=== PATIENT | female | born 1995 | race Caucasian/White ===

== ENCOUNTER → 2018-12-28 03:56 | Observation (INO) ==
[2018-12-28 03:00] LABS: Protein/Creatinine Ratio,Urine 0.27 mg/mg (0.00-0.20)
[2018-12-28 03:01] LABS: Amphetamine Screen,Urine Negative ng/mL (Cutoff=1000); Barbiturate Screen,Urine Negative ng/mL (Cutoff=200); Benzodiazepines Screen,Urine Negative ng/mL (Cutoff=200); Cannabinoid Screen,Urine Negative ng/mL (Cutoff = 50); Cocaine Screen,Urine Negative ng/mL (Cutoff= 300); Opiate Screen,Urine Negative ng/mL (Cutoff=300); Phencyclidine Screen,Urine Negative ng/mL (Cutoff=25)
[2018-12-28 03:02] LABS: Alanine Aminotransferase 7 Units/L (7-52); Aspartate Amino Transferase 9 Units/L (13-39); BUN/Creatinine Ratio 19 (6-26); Blood Urea Nitrogen 7 mg/dL (6-20); Lactate Dehydrogenase 128 Units/L (140-271); Uric Acid 2.6 mg/dL (2.3-7.6); eGFR For Non-African Americans > 60 (> 60)
--- NOTE | 2018-12-28 08:15 | Discharge Summary ---
Date of Encounter: 12/28/18 Time of Encounter: 08:12 - Discharge Diagnosis (1) 30 weeks gestation of Priority: Primary Status: Acute Comments: Patient was sent for PIH workup from [facility]. She states she has a history of preeclampsia with her previous . BP in ER was 160/90, patient asymptomatic. Admitted to observation for NST and BP monitoring. Blood pressures WNL while here on monitor, PC ratio 0.27 with other labs in the normal range. (2) NST (non-stress test) reactive Priority: Secondary Status: Acute Comments: FHR 155 bpm, moderate variability, +15x15 accels, no decels. - Discharge Medications Home Medications: Aspirin [Lo-Dose Aspirin EC] 81 mg PO DAILY 12/28/18 [History] Allergies/Adverse Reactions: Allergy/AdvReac Type Severity Reaction Status Date / Time No Known Allergies Allergy Verified 04/09/17 20:59 Data Procedures and tests throughout hospitalization: Laboratory Tests 12/28/18 12/28/18 12/28/18 02:30 02:30 02:30 BUN 7 Creatinine 0.36 L Est GFR ( Amer) > 60 Est GFR (Non-Af Amer) > 60 BUN/Creatinine Ratio 19 Uric Acid 2.6 AST 9 L ALT 7 Lactate Dehydrogenase 128 L Urine Creatinine 52 Protein/Creatinin Ratio 0.27 H Urine Total Protein 14 Urine Opiates Screen Negative Ur Barbiturates Screen Negative Ur Phencyclidine Scrn Negative Ur Amphetamines Screen Negative U Benzodiazepines Scrn Negative Urine Cocaine Screen Negative U Marijuana (THC) Screen Negative Ur Drug Screen Interp See Below Labs on day of discharge: Labs from last 24 hours 12/28/18 12/28/18 12/28/18 02:30 02:30 02:30 BUN 7 Creatinine 0.36 L Est GFR ( Amer) > 60 Est GFR (Non-Af Amer) > 60 BUN/Creatinine Ratio 19 Uric Acid 2.6 AST 9 L ALT 7 Lactate Dehydrogenase 128 L Urine Creatinine 52 Protein/Creatinin Ratio 0.27 H Urine Total Protein 14 Urine Opiates Screen Negative Ur Barbiturates Screen Negative Ur Phencyclidine Scrn Negative Ur Amphetamines Screen Negative U Benzodiazepines Scrn Negative Urine Cocaine Screen Negative U Marijuana (THC) Screen Negative Ur Drug Screen Interp See Below Date of admission: 12/28/18 02:14 Discharging clinician: Mary Scanlon Anticipated date of discharge: 12/28/18 - Patient Status Disposition: Home, Self-Care Condition: Good Functional capacity at discharge: independent ambulation Overall status at discharge: patient is progressing back to baseline - Discharge Instructions Additional Instructions: LABOR AND DELIVERY DISCHARGE INSTRUCTIONS Signs and Symptoms to be Reported to your Doctor Immediately: * Sudden gush, continuous or intermittent lead of fluid from vagina (note the time of gush and color of fluid) * Onset of bright red vaginal bleeding with or without pain (if you had a vaginal exam during this visit you may notice some dark red spotting. This is normal.) * Lower abdominal cramping or backache that is premenstrual-like feeling. * More than 6 contractions in one hour. * Burning during urination, having to urinate more frequently or pain in your mid-back. * A change in the baby's activity. This could be an increase or decrease in activity. * Severe headache which does not go away with tylenol. * Sudden swelling in the face, hands, arms and/or legs. * Upper abdominal pain - sometimes associated with heartburn or nausea and is not relieved by Maalox, Mylanta or Tums. * Dizziness or blurred vision or visual disturbances (seeing stars/lights). * Kick Counts One hour after a meal, lay down on one side in a quiet place. Count the number of dung the baby moves during an hour. If less than 6 movements, notify your physician. Diet: *Force fluids - 8-10 tall glasses of fluid per day. May include popsicles and jello. 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 She did have an elevated blood pressure of 160/90 while there and reported a history of preeclampsia with a previous . On arrival, her BP's were found to be WNL and lab work was normal as well. She is asymptomatic and has a reactive NST. Patient will be discharged home to follow up as scheduled for routine care. Time Attestation: Total time spent providing and/or coordinating discharge services: Time Spent: Less than 30 minutes - VTE Reasons for not Prescribing Prophylaxis: Treatment not Indicated - Low risk for VTE
== END | disposition home or self-care (01) ==
LOC: 1NENULAB
PROVIDERS: ADMIT Registered Nurse; ATTEND Registered Nurse

== ENCOUNTER 2019-02-17 11:36 | Inpatient (IN) ==
[2019-02-17] MEDS ORDERED: Ondansetron 4 MG/2 ML VIAL IVP PRN ×2 (11:43→19:17)
[2019-02-17] MEDS ORDERED: Famotidine 20 MG/2 ML VIAL IVP PRN (11:43)
[2019-02-17] MEDS ORDERED: Metoclopramide 10 MG/2 ML VIAL IVP PRN (11:43)
[2019-02-17] MEDS ORDERED: Naloxone 0.4 MG/ML INJ IVP PRN (11:43)
[2019-02-17] MEDS ORDERED: *HR* Nalbuphine 10 MG/ML AMPUL IVP PRN (11:43)
[2019-02-17] MEDS ORDERED: miSOPROStol 25 MCG TABLET PO PRN (11:43)
[2019-02-17] MEDS ORDERED: Ringers Solution, Lactated 1,000 ML IVC SCH (11:45)
[2019-02-17] MEDS ORDERED: Oxytocin 20 units/ LR 1000 mL 20 UNIT/1,000 ML BAG IVC SCH ×2 (11:45→18:15)
--- NOTE | 2019-02-17 12:57 | OB/GYN History & Physical ---
Date of Encounter: 02/17/19 Time of Encounter: 12:52 Assessment and Plan (1) 37 weeks gestation of Current visit: Yes Status: Acute Patient admitted for induction of labor at 37 weeks gestation for preeclampsia per Dr. Barnhart and Dr. Horowitz. (2) Pre-eclampsia affecting childbirth Current visit: Yes Status: Acute Patient is admitted for induction of labor at 37 weeks 0 days gestation. Decision made by Dr. Barnhart and Dr. Horowitz according to guidelines patient should be delivered at this time. She has had mild range blood pressures for multiple days, last 24 hour urine returned with 464 mg per day total protein PIH labs drawn upon admission as well as random protein/creatinine ratio and results pending (3) NST (non-stress test) reactive Current visit: No Status: Acute FHR 140 bpm, moderate variability, +15x15 accels, no decels. History of Present Illness Chief complaint: IOL for preeclampsia at 37w0d HPI: Ms. Forrester is a 23 year old female at 37w0d who is admitted today for induction of labor due to preeclampsia. Patient has had multiple days of mild range pressures and last 24 hr urine resulted total protein of 464 mg/day. Patient follows with Dr. Barnhart and he discussed case with Dr. Horowitz who both agree according to guidelines, patient needs to be induced at this time. Patient reports positive movement, denies bleeding and vaginal leakage. She denies headache, epigastric pain and visual disturbance today. Blood type O+ GBS negative HbSAG negative Rubella Immune Varicella Immune T. Pall negative Past Med Surg Social Fam HX - Past Medical History Source: patient Medical history: migraine Additional medical history: pt is currently Psychiatric history: anxiety - Past Surgical History Surgical History: no surgical history - Social History Smoking Status: Former smoker Smokeless Tobacco Status: No Alcohol use: none Drug use: none Current living situation: Home - Independent Activity Level: Independent ambulation Recent Out of Country Travel Within the Last 8 Weeks: No Exposure or Possible Exposure to Illness During Travel: No - Family History Mother Living Status: Still Living Hx Family Cardiac Disorders: No Hx Family Respiratory Disorders: No Hx Family Cancer: No Hx Family GI Disorders: No Hx Family Endocrine Disorder: No Hx Family Neuromuscular Disorders: No Hx Family Neurologic Disorders: No Hx Family HEENT Disorders: No Hx Family Autoimmune Disorders: Yes (MS) Obstetrical History - Pregnancies : 4 Para: 3 Term: 3 : 0 Ab's: 0 Livin Medications and Allergies Aspirin [Lo-Dose Aspirin EC] 81 mg PO DAILY 12/28/18 [History] Allergy/AdvReac Type Severity Reaction Status Date / Time No Known Allergies Allergy Verified 04/09/17 20:59 Review of System OB All systems PM: reviewed and no additional remarkable complaints except as stated Exam - Constitutional Constitutional: well developed, well nourished, no acute distress, average body habitus - HEENT HEENT: Normocephaly - Neck Neck exam: full ROM - Lungs Respiratory exam: CTAB - Cardiovascular Cardiovascular exam: RRR, +S1, +S2 - Breasts Breast: bilateral: normal - Abdomen Abdomen: Present: bowel sounds normal, gravid, non tender - Extremities Extremities exam: full ROM, normal capillary refill, normal inspection Deep Tendon Reflex Grade: 2+ Normal - Vulva Vulva: bilateral: normal - Vagina Vagina: Present: normal moisture - Cervix Dilation: 1 Effacement: 70 Station: -3 - Uterus Uterus exam: Present: normal size - Anus/Rectum Anus/Rectum: Present: normal perianal skin Results All other labs normal. - VTE Reasons for not Prescribing Prophylaxis: Treatment not Indicated - Low risk for VTE
--- NOTE | 2019-02-17 13:06 | OB Labor Progress Note ---
Date of Encounter: 02/17/19 Time of Encounter: 13:04 Labor Progress Note - Subjective Subjective: Patient resting without complaint at this time. - Vital Signs Vital Signs: WNL - Cervix Cervix: 1/70/-3 - Heart Tones Heart Tones: Category I, reactive tracing. - [place]: Irregular - Interventions Interventions: Procedure explained and patient agrees to proceed with cervical costello insertion SVE, Cervical costello placed without difficulty 80mL instilled into uterine balloon, 60 mL instilled into vaginal balloon. - Plan Physician notified: Yes Physician notified details: Spoke with Dr. Barnhart prior to patient's arrival and plan of care was discussed. According to Dr. Barnhart and Dr. Horowitz, patient should be delivered at this time due to preeclampsia. Will continue care in consultation with Dr. Barnhart. Plan: Recheck cervix in approximately 4 hours after placement of cervical costello. Give po Cytotec at this time. AROM when appropriate after costello is expelled or removed. Anticipate
[2019-02-17 13:18] LABS: Basophils % 0.3 %; Eosinophils # 0.1 K/mcL (0.0-0.6); Eosinophils % 0.4 %; Hemoglobin 10.8 g/dL (11.5-15.4); Immature Granulocytes % 1.7 % (0-4); Lymphocytes # 1.8 K/mcL (0.6-4.6); Lymphocytes % 13.2 %; Mean Corpuscular Hemoglobin 22.4 pg (28.0-33.3); Mean Corpuscular Volume 74.7 fL (83.0-100.0); Monocytes # 0.8 K/mcL (0.0-1.3); Monocytes % 5.8 %; Neutrophils # 10.6 K/mcL (1.6-8.9); Platelet Count 342 K/mcL (140-400); Red Blood Count 4.82 M/mcL (3.82-4.97); Red Cell Distribution Width 15.7 % (11.5-14.5); Segmented Neutrophils % 78.6 %
[2019-02-17 13:38] LABS: Alanine Aminotransferase 6 Units/L (7-52); Amphetamine Screen,Urine Negative ng/mL (Cutoff=1000); Aspartate Amino Transferase 13 Units/L (13-39); BUN/Creatinine Ratio 16 (6-26); Barbiturate Screen,Urine Negative ng/mL (Cutoff=200); Benzodiazepines Screen,Urine Negative ng/mL (Cutoff=200); Blood Urea Nitrogen 7 mg/dL (6-20); Cannabinoid Screen,Urine Negative ng/mL (Cutoff = 50); Cocaine Screen,Urine Negative ng/mL (Cutoff= 300); Lactate Dehydrogenase 163 Units/L (140-271); Opiate Screen,Urine Negative ng/mL (Cutoff=300); Phencyclidine Screen,Urine Negative ng/mL (Cutoff=25); Uric Acid 6.4 mg/dL (2.3-7.6); eGFR For Non-African Americans > 60 (> 60)
[2019-02-17 13:55] LABS: Creatinine,Urine 252 mg/dL; Protein/Creatinine Ratio,Urine 1.57 mg/mg (0.00-0.20)
--- NOTE | 2019-02-17 16:45 | OB Labor Progress Note ---
Date of Encounter: 02/17/19 Time of Encounter: 16:42 Labor Progress Note - Subjective Subjective: Patient coping well with contractions. Does not plan for an epidural - Vital Signs Vital Signs: WNL - Cervix Cervix: 6-7/80/-1 - Heart Tones Heart Tones: FHR 145 bpm, moderate variability, +15x15 accels, no decels. - [place]: 2-3 min - Interventions Interventions: SVE, costello balloon had been expelled spontaneously AROM for small amount of clear fluid - Plan Physician notified: Yes Physician notified details: Dr. Barnhart notified of SVE and AROM Plan: Start Pitocin augmentation when able
--- NOTE | 2019-02-17 17:41 | OB Labor Progress Note ---
Date of Encounter: 02/17/19 Time of Encounter: 17:35 Labor Progress Note - Subjective Subjective: patient feeling more pressure, does not want epidural - Vital Signs Vital Signs: VSS - Cervix Cervix: 7cm/80%/+1 - Heart Tones Heart Tones: 140/mod niko/+accels, no decels - [place]: Q1-2 - Plan Plan: anticipate
--- NOTE | 2019-02-17 17:58 | OB/GYN Procedure Note ---
Delivery - Delivery Date: 02/17/19 Provider: Josefa Barnhart Intrapartum events: none Delivery induction: misoprostol Delivery augmentation: rupture of membranes Delivery monitor: external FHT, external uterine Anesthesia: none Quantitated Blood Loss: 100 - Repair Episiotomy: none Laceration Description: None - Complications Delivery complications: none - Disposition Mom disposition: stable in LDR [place] disposition: stable in LDR - Comments Comments: Mitzy is a 23 y/o s/p @ 37 weeks after IOL for pre-eclampsia w/o severe features who delivered a viable male infant, nuchal x 1 reduced easily, weight 2740g @ 1746hrs. 3 vessel cord clamped and cut after placed on Mom's chest. Placenta delivered 1750hrs. APGARs 7/9, EBL 100ml. No lacerations. Mother and doing well.
[2019-02-17] MEDS ORDERED: Measles/Mumps/Rubella Vacc 0.5 ML VIAL SQ PRN ×2 (18:05→19:17)
[2019-02-17] MEDS ORDERED: Ibuprofen 600 MG TABLET PO PRN ×2 (18:05→19:17)
[2019-02-18 05:49] LABS: Basophils % 0.3 %; Eosinophils % 0.2 %; Hematocrit 32.4 % (35.3-44.9); Immature Granulocytes % 1.2 % (0-4); Lymphocytes % 13.4 %; Mean Corpuscular HGB Conc 30.9 g/dL (31.6-35.5); Mean Corpuscular Volume 74.7 fL (83.0-100.0); Mean Platelet Volume 8.9 fL (9.4-12.4); Monocytes % 6.7 %; Neutrophils # 11.5 K/mcL (1.6-8.9); Platelet Count 284 K/mcL (140-400); Red Blood Count 4.34 M/mcL (3.82-4.97); Red Cell Distribution Width 15.8 % (11.5-14.5); Segmented Neutrophils % 78.2 %
[2019-02-18 06:06] LABS: Alanine Aminotransferase 6 Units/L (7-52); Aspartate Amino Transferase 15 Units/L (13-39); BUN/Creatinine Ratio 12 (6-26); Blood Urea Nitrogen 5 mg/dL (6-20); Lactate Dehydrogenase 216 Units/L (140-271); Uric Acid 5.7 mg/dL (2.3-7.6); eGFR For Non-African Americans > 60 (> 60)
[2019-02-18] MEDS ORDERED: Prenatal Vit/FA 1 EACH TABLET PO SCH ×2 (09:00)
--- NOTE | 2019-02-18 09:47 | Discharge Summary ---
Date of Encounter: 02/18/19 Time of Encounter: 09:45 - Discharge Diagnosis (1) Vaginal delivery Priority: Primary Status: Acute Comments: Continue routine care discharge home today follow up with Dr. Barnhart in 4-6 weeks - Discharge Medications Prescriptions: New Ibuprofen [Motrin] 600 mg PO Q6HR PRN #60 tablet PRN Reason: Cramping Home Medications: Ibuprofen [Motrin] 600 mg PO Q6HR PRN #60 tablet 02/18/19 [Rx] Allergies/Adverse Reactions: Allergy/AdvReac Type Severity Reaction Status Date / Time No Known Allergies Allergy Verified 04/09/17 20:59 Data Procedures and tests throughout hospitalization: Laboratory Tests 02/17/19 02/17/19 02/17/19 12:40 12:40 12:40 WBC 13.4 H RBC 4.82 Hgb 10.8 L Hct 36.0 MCV 74.7 L MCH 22.4 L MCHC 30.0 L RDW 15.7 H Plt Count 342 MPV 9.0 L Immature Gran % 1.7 Seg Neutrophils % 78.6 Lymphocytes % 13.2 Monocytes % 5.8 Eosinophils % 0.4 Basophils % 0.3 Neutrophils # 10.6 H Lymphocytes # 1.8 Monocytes # 0.8 Eosinophils # 0.1 Basophils # 0.0 BUN 7 Creatinine 0.44 L Est GFR ( Amer) > 60 Est GFR (Non-Af Amer) > 60 BUN/Creatinine Ratio 16 Uric Acid 6.4 AST 13 ALT 6 L Lactate Dehydrogenase 163 Urine Creatinine 252 Protein/Creatinin Ratio 1.57 H Urine Total Protein 396 H Urine Opiates Screen Negative Ur Barbiturates Screen Negative Ur Phencyclidine Scrn Negative Ur Amphetamines Screen Negative U Benzodiazepines Scrn Negative Urine Cocaine Screen Negative U Marijuana (THC) Screen Negative Ur Drug Screen Interp See Below 02/18/19 02/18/19 05:12 05:12 WBC 14.7 H RBC 4.34 Hgb 10.0 L Hct 32.4 L MCV 74.7 L MCH 23.0 L MCHC 30.9 L RDW 15.8 H Plt Count 284 MPV 8.9 L Immature Gran % 1.2 Seg Neutrophils % 78.2 Lymphocytes % 13.4 Monocytes % 6.7 Eosinophils % 0.2 Basophils % 0.3 Neutrophils # 11.5 H Lymphocytes # 2.0 Monocytes # 1.0 Eosinophils # 0.0 Basophils # 0.0 BUN 5 L Creatinine 0.41 L Est GFR ( Amer) > 60 Est GFR (Non-Af Amer) > 60 BUN/Creatinine Ratio 12 Uric Acid 5.7 AST 15 ALT 6 L Lactate Dehydrogenase 216 Urine Creatinine Protein/Creatinin Ratio Urine Total Protein Urine Opiates Screen Ur Barbiturates Screen Ur Phencyclidine Scrn Ur Amphetamines Screen U Benzodiazepines Scrn Urine Cocaine Screen U Marijuana (THC) Screen Ur Drug Screen Interp Labs on day of discharge: Labs from last 24 hours 02/18/19 02/18/19 02/17/19 05:12 05:12 12:40 WBC 14.7 H RBC 4.34 Hgb 10.0 L Hct 32.4 L MCV 74.7 L MCH 23.0 L MCHC 30.9 L RDW 15.8 H Plt Count 284 MPV 8.9 L Immature Gran % 1.2 Seg Neutrophils % 78.2 Lymphocytes % 13.4 Monocytes % 6.7 Eosinophils % 0.2 Basophils % 0.3 Neutrophils # 11.5 H Lymphocytes # 2.0 Monocytes # 1.0 Eosinophils # 0.0 Basophils # 0.0 BUN 5 L Creatinine 0.41 L Est GFR ( Amer) > 60 Est GFR (Non-Af Amer) > 60 BUN/Creatinine Ratio 12 Uric Acid 5.7 AST 15 ALT 6 L Lactate Dehydrogenase 216 Urine Creatinine 252 Protein/Creatinin Ratio 1.57 H Urine Total Protein 396 H Urine Opiates Screen Negative Ur Barbiturates Screen Negative Ur Phencyclidine Scrn Negative Ur Amphetamines Screen Negative U Benzodiazepines Scrn Negative Urine Cocaine Screen Negative U Marijuana (THC) Screen Negative Ur Drug Screen Interp See Below 02/17/19 02/17/19 12:40 12:40 WBC 13.4 H RBC 4.82 Hgb 10.8 L Hct 36.0 MCV 74.7 L MCH 22.4 L MCHC 30.0 L RDW 15.7 H Plt Count 342 MPV 9.0 L Immature Gran % 1.7 Seg Neutrophils % 78.6 Lymphocytes % 13.2 Monocytes % 5.8 Eosinophils % 0.4 Basophils % 0.3 Neutrophils # 10.6 H Lymphocytes # 1.8 Monocytes # 0.8 Eosinophils # 0.1 Basophils # 0.0 BUN 7 Creatinine 0.44 L Est GFR ( Amer) > 60 Est GFR (Non-Af Amer) > 60 BUN/Creatinine Ratio 16 Uric Acid 6.4 AST 13 ALT 6 L Lactate Dehydrogenase 163 Urine Creatinine Protein/Creatinin Ratio Urine Total Protein Urine Opiates Screen Ur Barbiturates Screen Ur Phencyclidine Scrn Ur Amphetamines Screen U Benzodiazepines Scrn Urine Cocaine Screen U Marijuana (THC) Screen Ur Drug Screen Interp Date of admission: 02/17/19 11:36 Primary care physician: Henry Steinberg MD Consults: 02/17/19 18:05 Consult to Manager Corporate Communications [CONS] Routine Comment: Vaginal delivery, consult needed Discharging clinician: Mendy Van Anticipated date of discharge: 02/18/19 - Patient Status Disposition: Home, Self-Care Condition: Good Functional capacity at discharge: independent ambulation - Discharge Instructions Follow Up With: Henry Steinberg MD [Primary Care Provider] - Josefa Barnhart MD [Partnered Physician] - - Diet and Activity Activity: increase activity as tolerated Diet: regular diet Hospital Course Reason for admission: induction of labor Delivery: Episiotomy: none Laceration: none Other procedures: none complications: none Discharge diagnosis: IUP at term delivered [place] baby: male (bottle feeding) Time Attestation: Total time spent providing and/or coordinating discharge services: Time Spent: Less than 30 minutes Exam - Constitutional Vitals: Temp Pulse Resp BP Pulse Ox 97.6 F 77 16 130/84 97 02/18/19 08:02 02/18/19 08:02 02/18/19 08:15 02/18/19 08:02 02/18/19 08:02 General appearance IM: A&O X 3, pleasant, answers questions appropriately - Respiratory Respiratory exam: Present: CTAB - Cardiovascular Cardiovascular exam IM: Present: RRR, +S1, +S2 - GI/Abdominal GI/Abdominal exam IM: normal bowel sounds - Uterine Tone: Firm Uterus Position: At Umbilicus, Midline - Extremities Exam Extremities exam IM: Present: full ROM, normal capillary refill, normal inspection - Neurological Exam Neurological exam: alert, oriented X3, reflexes normal
[2019-02-18 17:06] VITALS: BP 125/78
== END 2019-02-18 22:40 | disposition home or self-care (01) | DRG 560 ==
LOC: 1NENULAB 11:36 → 1NENUOBS 19:31
PROVIDERS: ADMIT Registered Nurse; ATTEND Registered Nurse

== ENCOUNTER 2022-01-12 00:29 | Observation (INO) ==
[2022-01-12 01:19] LABS: Bacteria,Urine Few per hpf (None-Few); Bilirubin,Urine Negative (Negative); Blood,Urine Negative (Negative); Clarity,Urine Turbid (Clear); Color,Urine Yellow (Yellow); Glucose,Urine (UA) Normal (Normal); Ketones,Urine Negative (Negative); Leukocyte Esterase,Urine Large (Negative); Mucus,Urine Few per lpf (None-Few); Nitrite,Urine Negative (Negative); PH,Urine 6.5 pH Units (5.0-8.0); Protein,Urine Trace mg/dL (Neg-Trace); Specific Gravity,Urine 1.028 (1.010-1.025); Squamous Epithelial Cell,Urine Moderate per hpf (None-Few); WBC,Urine 15-30 per hpf (0-3)
== END 2022-01-12 01:45 | disposition home or self-care (01) ==
LOC: 1NENULAB
PROVIDERS: ADMIT Student in an Organized Health Care Education/Training Program; ATTEND Student in an Organized Health Care Education/Training Program

== ENCOUNTER 2022-05-08 03:24 | Inpatient (IN) ==
[2022-05-08] MEDS ORDERED: Oxytocin 30 UNIT/503 ML BAG IVC ONE (03:28)
[2022-05-08] MEDS ORDERED: Naloxone 0.4 MG/ML INJ IVP PRN (03:29)
[2022-05-08] MEDS ORDERED: Metoclopramide 10 MG/2 ML VIAL IVP PRN (03:29)
[2022-05-08] MEDS ORDERED: Famotidine 20 MG/2 ML VIAL IVP PRN (03:29)
[2022-05-08] MEDS ORDERED: Ringers Solution, Lactated 1,000 ML IVC SCH (03:30)
[2022-05-08 04:02] LABS: Basophils % 0.3 %; Eosinophils # 0.3 K/mcL (0.0-0.6); Eosinophils % 1.8 %; Hematocrit 33.2 % (35.3-44.9); Hemoglobin 10.6 g/dL (11.5-15.4); Immature Granulocytes % 1.7 % (0-4); Lymphocytes # 2.5 K/mcL (0.6-4.6); Lymphocytes % 16.1 %; Mean Corpuscular HGB Conc 31.9 g/dL (31.6-35.5); Mean Corpuscular Hemoglobin 24.3 pg (28.0-33.3); Mean Corpuscular Volume 76.1 fL (83.0-100.0); Monocytes # 0.9 K/mcL (0.0-1.3); Neutrophils # 11.4 K/mcL (1.6-8.9); Platelet Count 350 K/mcL (140-400); Red Blood Count 4.36 M/mcL (3.82-4.97); Red Cell Distribution Width 14.7 % (11.5-14.5); Segmented Neutrophils % 74.1 %; White Blood Count 15.4 K/mcL (4.3-11.1)
[2022-05-08 04:10] LABS: Amphetamine Screen,Urine Negative ng/mL (Cutoff=1000); Barbiturate Screen,Urine Negative ng/mL (Cutoff=200); Benzodiazepines Screen,Urine Negative ng/mL (Cutoff=200); Cannabinoid Screen,Urine Negative ng/mL (Cutoff = 50); Cocaine Screen,Urine Negative ng/mL (Cutoff= 300); Opiate Screen,Urine Negative ng/mL (Cutoff=300); Phencyclidine Screen,Urine Negative ng/mL (Cutoff=25)
[2022-05-08 06:06] LABS: Hepatitis B Surface Antigen Nonreactive (Nonreactive)
[2022-05-08 06:35] LABS: HIV-1&2 Antibody & p24 Ag Nonreactive (Nonreactive)
[2022-05-08] MEDS ORDERED: Ondansetron ODT 4 MG TAB.RAPDIS SL PRN (06:49)
[2022-05-08] MEDS ORDERED: Rho Immune Globulin 1,500 UNIT SYRINGE IM PRN (06:49)
[2022-05-08] MEDS ORDERED: Lanolin 7 G OINT...G. TP PRN (06:49)
[2022-05-08] MEDS ORDERED: Benzocaine/Menthol 56 GM AEROSOL SPRAY TP PRN (06:49)
[2022-05-08] MEDS ORDERED: Measles/Mumps/Rubella Vacc 0.5 ML VIAL SQ PRN (06:49)
[2022-05-08] MEDS: Ibuprofen 600 MG TABLET PO SCH ×3 (07:30→17:41)
[2022-05-08] MEDS: Acetaminophen 325 MG TABLET PO SCH ×3 (07:31→22:28)
[2022-05-08] MEDS: Prenatal Vit/FA 1 EACH TABLET PO SCH (08:21)
[2022-05-08 09:56] LABS: Rubella IgG Antibody POSITIVE (POSITIVE); Varicella Zoster IgG Antibody Positive
[2022-05-09] MEDS: Ibuprofen 600 MG TABLET PO SCH ×2 (04:03→09:51)
[2022-05-09] MEDS: Acetaminophen 325 MG TABLET PO SCH ×2 (04:03→09:52)
[2022-05-09 04:17] VITALS: O2SAT 97
[2022-05-09 07:08] VITALS: BP 111/66; PULSE 82; TEMP 98
[2022-05-09] MEDS: Prenatal Vit/FA 1 EACH TABLET PO SCH (08:16)
[2022-05-10 14:24] LABS: HCV Quant Interpretation NOT DETECTED (Not Detected); HCV Quant Log NOT DETECTED log IU/mL
== END 2022-05-09 15:16 | disposition home or self-care (01) | DRG 560 ==
LOC: 1NENULAB → 1NENUOBS 06:38
PROVIDERS: ADMIT Advanced Practice Midwife; ATTEND Advanced Practice Midwife